=== PATIENT | female | born 1990 | race Caucasian/White ===

== ENCOUNTER 2019-07-09 12:17 | Emergency (ER) | payer OTHER, SELFPAY ==
--- NOTE | ~2019-07-09 | US_ITS ---
EXAMINATION: US OB <=14 wk fetus w TV DATE: 07/09/2019 13:25 INDICATION: Abdominal pain and cramping during first trimester TECHNIQUE: Real-time pelvic transabdominal and transvaginal ultrasound was performed. COMPARISON: None. FINDINGS: The uterus measures 9.0 x 5.4 x 6.4 cm. There is an intrauterine gestational sac. A yolk s ac is identified. heart motion is identified measuring 120 beats per minute (bpm) by M-mode Dop pler. The crown rump length measures 4 mm , which correlates with an estimated gestational age of 6 weeks and 2 day(s) (+/-) 3 day(s). The right ovary measures 3.0 x 2.2 x 1.8 cm. The left ovary measures 3.1 x 3.0 x 3.1 cm. There is no free fluid in the pelvis. IMPRESSION: 1. Live intrauterine with an estimated gestational age of 6 weeks and 2 day(s) (+/-) 3 day( s) and an estimated delivery date of 03/01/2020. Reviewed, dictated and finalized at location B. IMPRESSION: 1. Live intrauterine with an estimated gestational age of 6 weeks and 2 day(s) (+/-) 3 day(s) and an estimated delivery date of 03/01/2020.
[2019-07-09 12:27] VITALS: BP 146/100; PULSE 126; RESP 18; TEMP 37.3; O2SAT 99
--- NOTE | 2019-07-09 12:37 | ED_ITS ---
I attest that this documentation has been prepared under the direction and in the presence of Gregg Holland MD. 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 Stated complaint: Preg complications Time Seen by Provider: 07/09/19 12:33 Related Data Home Medications Medication Instructions Recorded Confirmed No Home Medications 07/09/19 07/09/19 Allergies Allergy/AdvReac Type Severity Reaction Status Date / Time No Known Allergies Allergy Verified 07/09/19 12:29 [facility] Social History Social History Gender identity (if verbalized by the patient): Female Course Vital Signs Vital signs: Vital Signs Temperature 37.3 C 07/09/19 12:27 Pulse Rate 126 H 07/09/19 12:27 Respiratory Rate 18 07/09/19 12:27 Blood Pressure 146/100 H 07/09/19 12:27 Pulse Oximetry 99 07/09/19 12:27 Temperature 37.3 C 07/09/19 12:27 Pulse Rate 126 H 07/09/19 12:27 Respiratory Rate 18 07/09/19 12:27 Blood Pressure 146/100 H 07/09/19 12:27 Pulse Oximetry 99 07/09/19 12:27 Discharge Plan Discharge Prescriptions: No Action No Home Medications RF: 0
--- NOTE | 2019-07-09 12:55 | ED.ABDPAIN ---
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 Pt recently found out that she is yesterday after she took 4 different tests. Pt states that this is her first . Pt states that her ABD pain feels similar to menstrual cramping. Patient reports lower back pain, but she denies any vaginal bleeding, vaginal discharge, dysuria, frequency, fever, chills, sweats, or N/V. Pt denies any h/o smoking or previous medical problems. She states a h/o a tonsillectomy. Pt states that she was taking an oral contraceptive, but stopped following her positive tests. She reports that she has missed her last 2 periods, and states that her LNMP was sometime in April. Pt notes that she recently saw her PCP 4 days ago. Pt does not have a current OB. MD elicited complaint: abdominal pain Onset (ago): day(s) (1) Pain Consistency: constant Location: other (lower ABD) Quality: cramping (similar to menstrual cramps) Context: confirms other (found out she is 1 day ago) Associated symptoms: other (lower back pain) Related Data Hx Last Menstrual Period: April Patient : Yes Home Medications Medication Instructions Recorded Confirmed No Home Medications 07/09/19 07/09/19 Allergies Allergy/AdvReac Type Severity Reaction Status Date / Time No Known Allergies Allergy Verified 07/09/19 12:29 Review of Systems Review of Systems: All systems reviewed & are unremarkable except as noted in HPI and below Constitutional: Constitutional: Denies chills and Denies fever(s) Cardiovascular: Cardiovascular: Denies diaphoresis Gastrointestinal: Gastrointestinal: Reports abdominal pain (lower ABD cramping), Denies nausea and Denies vomiting Genitourinary: Genitourinary: Denies abnormal vaginal bleeding, Reports amenorrhea (missed last 2 periods), Denies nocturia, Denies dysuria and Denies vaginal discharge Musculoskeletal: Musculoskeletal: Reports back pain (lower) PMFSH Past Medical History Medical History Healthy female adult Surgical History Surgical History Hx of tonsillectomy Social History Social History Smoking status: Never smoker Alcohol intake: current Alcohol use details: occasional Gender identity (if verbalized by the patient): Female Exam Narrative: Exam Narrative: GENERAL: Well-appearing, well-nourished, and in no acute distress. HEAD: Normocephalic, atraumatic. ENT: Mucous membranes moist. CHEST: Clear to auscultation. No respiratory distress. HEART: Regular rate and rhythm. Normal peripheral pulses. ABDOMEN: Soft, mild suprapubic discomfort, nondistendeds. EXTREMITIES: Normal range of motion. No edema. NEURO: Alert and oriented x3. PSYCH: Normal mood and affect. Course Course Emergency Course: Patient informed of results. Urine with some contaminant. Recommend hydration and will give OB follow-up. Vital Signs Vital signs: Vital Signs Temperature 99.2 F 07/09/19 12:27 Pulse Rate 126 H 07/09/19 12:27 Respiratory Rate 18 07/09/19 12:27 Blood Pressure 146/100 H 07/09/19 12:27 Pulse Oximetry 99 07/09/19 12:27 Temperature 99.2 F 07/09/19 12:27 Pulse Rate 126 H 07/09/19 12:27 Respiratory Rate 18 07/09/19 12:27 Blood Pressure 146/100 H 07/09/19 12:27 Pulse Oximetry 99 07/09/19 12:27 MDM - Abdominal Pain Lab Data Result diagrams: 07/09/19 13:35 07/09/19 13:35 Labs: Lab Results 07/09/19 07/09/19 07/09/19 Range/Units 13:35 13:
[2019-07-09 13:46] LABS: Basophils Percent Auto 0.4 % (0.2-1.2); Eosinophils Absolute Auto 0.1 K/mm3 (0-0.3); Eosinophils Percent Auto 0.8 % (0-4.4); Hematocrit 39.8 % (37.0-47.0); Hemoglobin 12.7 g/dL (12.0-15.0); Immature Granulocyte Absolute 0.02 K/mm3 (0.00-0.031); Immature Granulocyte Percent A 0.3 % (0-0.5); Lymphocytes Absolute Auto 1.79 K/mm3 (0.9-3.2); Mean Corpuscular HGB Conc 31.9 g/dl (32-36); Mean Corpuscular Hemoglobin 27.5 pg (26-34); Mean Corpuscular Volume 86.1 fl (80-100); Mean Platelet Volume 9.7 fl (7.4-10.4); Monocytes Absolute Auto 0.4 K/mm3 (0.1-0.6); Monocytes Percent Auto 5.7 % (2.6-8.5); Neutrophils Absolute Auto 5.4 K/mm3 (1.3-6.7); Neutrophils Percent Auto 69.8 % (45.5-73.1); Platelet Count Result 250 k/mm3 (150-375); Red Blood Count 4.62 M/mm3 (4.2-5.4); Red Cell Distribution Width 12.4 % (11.5-14.5); White Blood Count 7.8 K/mm3 (4.5-10.0)
[2019-07-09 13:53] LABS: Add Urine Microscopic? YES; Appearance Urine Clear (Clear); Bilirubin Urine Negative (Negative); Blood Urine Negative (Negative); Color Urine Yellow (Yellow); Glucose Urine UA Negative (Negative); Ketones Urine Negative (Negative); Leukocyte Esterase Ur 1+ LEU/UL (Negative); Mucus Urine Few /lpf; Nitrate Urine Negative (Negative); Protein Urine 1+ mg/dL (Negative); RBC Urine 0-2 /hpf (0-2); Specific Grav Ur 1.021 (1.001-1.035); Squamous Epithelial Cell Urine Many /hpf (Few); Urobilinogen Urine Negative mg/dL (<2.0)
[2019-07-09 14:00] VITALS: BP 132/94; PULSE 102; RESP 18; O2SAT 99
[2019-07-09 14:01] LABS: Blood Urea Nitrogen 8 mg/dL (7-17); Calcium 9.1 mg/dL (8.4-10.2); Carbon Dioxide 22 mmol/L (22-30); Chloride 107 mmol/L (98-107); Estimated CRCL calculation 139 ml/min; Estimated Glomerular Filt Rate > 60; Glucose 100 mg/dL (65-105); Potassium 3.8 mmol/L (3.4-5.0); Sodium 136 mmol/L (137-145)
== END 2019-07-09 14:38 | disposition home or self-care (01) ==
PROVIDERS: Emergency Provider Emergency Medicine
DX: O26.891 Other specified pregnancy related conditions, first trimester (principal); R10.30 Lower abdominal pain, unspecified; Z3A.01 Less than 8 weeks gestation of pregnancy
CPT/HCPCS: 36415; 76801; 76817; 80048; 81001; 81025; 84702; 85025; 99284